=== PATIENT | male | born 1950 | race Two or more races ===

== ENCOUNTER 2017-06-19 12:17 | Inpatient (IN) | payer OTHER, MEDICAID ==
[~2017-06-19] VITALS: Ht 177.8 cm; Wt 82.0 kg
[2017-06-19] MEDS ORDERED: SODIUM CHLORIDE 0.9% 1,000 ML IV ONE (13:09)
[2017-06-19] MEDS ORDERED: ASPirin 81 mg TAB PO ONE ×2 (13:15→18:00)
[2017-06-19 13:34] LABS: Basophils # (auto) 0 uL; Basophils % (auto) 0.4 % (0.0-2.0); Eosinophils # (auto) 0.1 uL; Eosinophils % (auto) 1.4 % (0.0-7.0); Hematocrit 37.6 % (41.0-53.0); Hemoglobin 12.6 g/dL (13.5-17.5); Lymphocytes % (auto) 14.7 % (10.0-50.0); Mean Corpuscular Hemoglobin 29.7 pg (28.0-32.0); Mean Corpuscular Hgb Conc. 33.6 g/dL (32.0-36.0); Mean Corpuscular Volume 88.5 fL (80.0-100.0); Monocytes # (auto) 0.4 uL; Monocytes % (auto) 6.3 % (0.0-12.0); Neutrophils # (auto) 5.1 uL; Neutrophils % (auto) 77.2 % (37.0-80.0); Platelet Count (auto) 238 10^3/uL (140-450); Red Blood Cells 4.25 10^6/uL (4.5-5.90); Red Cell Distribution Width 13.8 % (11.8-14.3); White Blood Cell 6.6 10^3/uL (4.4-10.8)
[2017-06-19 14:15] LABS: BUN/Creatinine Ratio 22.9; Bilirubin, Total 0.3 mg/dL (0.2-1.0); Calcium 8.5 mg/dL (8.5-10.1); Magnesium 2.7 mg/dL (1.6-2.6); Potassium 4.6 mmol/L (3.5-5.1); Total Protein 6.4 g/dL (6.4-8.2)
[2017-06-19] MEDS ORDERED: DEXTROSE (50%) 50ML SYRG IV PRN (17:45)
[2017-06-19] MEDS: SODIUM CHLORIDE 0.9% 1,000 ML IV SCH (17:56)
[2017-06-19] MEDS: ACCU-CHEK COMFORT CURVE STRIP VI SCH (17:57)
[2017-06-19 18:11] LABS: Cholesterol 135 mg/dL (< 200); HDL Cholesterol 43 mg/dL (40-59); LDL Cholesterol 82 mg/dL (< 100); Triglycerides 124 mg/dL (< 150)
[2017-06-19] MEDS: InsuLIN REG 1unit/0.01ml Soln (100units/ml) SC SCH (18:42)
[2017-06-19] MEDS: ENOXAPARIN SOD 80 MG/0.8ML SYRINGE SC SCH ×2 (18:42→22:00)
[2017-06-19 19:59] LABS: Folate (Folic Acid) 16.85 ng/mL (5.38-24)
[2017-06-19 20:40] VITALS: BP 157/78
[2017-06-19 22:00] VITALS: BP 157/79
[2017-06-19] MEDS: METOPROLOL TARTRATE 25 MG TAB PO SCH (22:23)
[2017-06-19] MEDS: ATORVASTATIN 20 MG TAB PO SCH (22:24)
[2017-06-20] MEDS: ACCU-CHEK COMFORT CURVE STRIP VI SCH ×4 (00:05→17:47)
[2017-06-20] MEDS: InsuLIN REG 1unit/0.01ml Soln (100units/ml) SC SCH ×4 (00:06→17:48)
[2017-06-20 05:31] VITALS: BP 142/70
[2017-06-20 05:38] LABS: Basophils # (auto) 0 uL; Basophils % (auto) 0.3 % (0.0-2.0); Eosinophils # (auto) 0.2 uL; Eosinophils % (auto) 3.2 % (0.0-7.0); Hematocrit 36.4 % (41.0-53.0); Hemoglobin 12.7 g/dL (13.5-17.5); Lymphocytes # (auto) 1.3 uL; Lymphocytes % (auto) 25.7 % (10.0-50.0); Mean Corpuscular Hemoglobin 30.4 pg (28.0-32.0); Mean Corpuscular Hgb Conc. 34.9 g/dL (32.0-36.0); Mean Corpuscular Volume 87.3 fL (80.0-100.0); Monocytes # (auto) 0.4 uL; Monocytes % (auto) 8.4 % (0.0-12.0); Neutrophils # (auto) 3.2 uL; Neutrophils % (auto) 62.4 % (37.0-80.0); Platelet Count (auto) 234 10^3/uL (140-450); Red Blood Cells 4.17 10^6/uL (4.5-5.90); Red Cell Distribution Width 13.8 % (11.8-14.3); White Blood Cell 5.1 10^3/uL (4.4-10.8)
[2017-06-20 06:06] LABS: Albumin 2.8 g/dL (3.4-5.0); BUN/Creatinine Ratio 24.4; Bilirubin, Total 0.3 mg/dL (0.2-1.0); Calcium 8.5 mg/dL (8.5-10.1); Total Protein 5.9 g/dL (6.4-8.2)
[2017-06-20] MEDS: SODIUM CHLORIDE 0.9% 1,000 ML IV SCH ×2 (06:11→20:44)
[2017-06-20 08:00] VITALS: BP 145/69
[2017-06-20 09:00] VITALS: BP 145/69
[2017-06-20] MEDS: ENOXAPARIN SOD 80 MG/0.8ML SYRINGE SC SCH (10:00)
[2017-06-20] MEDS: METOPROLOL TARTRATE 25 MG TAB PO SCH ×2 (10:27→21:50)
[2017-06-20] MEDS: ASPirin 81 mg TAB PO SCH (10:28)
[2017-06-20] MEDS ORDERED: METO-158 PO (12:40)
[2017-06-20] MEDS ORDERED: ASPI325T4 PO (12:43)
[2017-06-20] MEDS ORDERED: PITA1TAB PO (12:43)
[2017-06-20] MEDS ORDERED: BACL10TA PO (12:43)
[2017-06-20 13:00] VITALS: BP 116/58
[2017-06-20 17:00] VITALS: BP 143/78
[2017-06-20] MEDS: ATORVASTATIN 20 MG TAB PO SCH (21:49)
[2017-06-20 22:00] VITALS: BP 143/64
[2017-06-21] MEDS: InsuLIN REG 1unit/0.01ml Soln (100units/ml) SC SCH ×5 (00:01→23:48)
[2017-06-21] MEDS ORDERED: hydrALAZINE HCL 20 MG/ML VL IV PRN (02:30)
[2017-06-21] MEDS: HYDROcodone-ACET 10/325MG TAB PO PRN (02:30)
[2017-06-21 05:00] VITALS: BP 129/57
[2017-06-21] MEDS: ACCU-CHEK COMFORT CURVE STRIP VI SCH ×5 (05:53→23:47)
[2017-06-21 08:23] VITALS: BP 145/61
[2017-06-21] MEDS: SODIUM CHLORIDE 0.9% 1,000 ML IV SCH ×2 (08:45→19:38)
[2017-06-21] MEDS: ASPirin 81 mg TAB PO SCH (10:07)
[2017-06-21] MEDS: INSULIN DETEMIR(LEVEMIR) 1unit/0.01ml Soln (100units/ml) SC SCH ×2 (10:22→22:12)
[2017-06-21] MEDS: METOPROLOL TARTRATE 25 MG TAB PO SCH ×2 (10:22→22:12)
[2017-06-21 12:17] VITALS: BP 112/54
[2017-06-21 16:58] VITALS: BP 151/67
[2017-06-21 22:00] VITALS: BP 136/59
[2017-06-21] MEDS: ATORVASTATIN 20 MG TAB PO SCH (22:11)
[2017-06-22 05:00] VITALS: BP 154/70
[2017-06-22] MEDS: ACCU-CHEK COMFORT CURVE STRIP VI SCH ×4 (05:40→23:42)
[2017-06-22] MEDS: InsuLIN REG 1unit/0.01ml Soln (100units/ml) SC SCH ×4 (05:52→23:42)
[2017-06-22 08:00] VITALS: BP 116/55
[2017-06-22] MEDS: SODIUM CHLORIDE 0.9% 1,000 ML IV SCH ×2 (08:08→20:41)
[2017-06-22 08:31] VITALS: BP 116/55
[2017-06-22] MEDS: ASPirin 325 MG TAB PO SCH (09:44)
[2017-06-22] MEDS: METOPROLOL TARTRATE 25 MG TAB PO SCH ×2 (09:56→21:48)
[2017-06-22] MEDS: INSULIN DETEMIR(LEVEMIR) 1unit/0.01ml Soln (100units/ml) SC SCH ×2 (10:02→21:49)
[2017-06-22 12:32] VITALS: BP_SYST 127; BP_SYST 145; BP_DIAS 54; BP_DIAS 66
[2017-06-22 17:02] VITALS: BP 143/92
[2017-06-22] MEDS: ATORVASTATIN 20 MG TAB PO SCH (21:48)
[2017-06-22 22:00] VITALS: BP 158/71
[2017-06-23] MEDS: HYDROcodone-ACET 10/325MG TAB PO PRN (03:01)
[2017-06-23 05:00] VITALS: BP 150/61
[2017-06-23] MEDS: InsuLIN REG 1unit/0.01ml Soln (100units/ml) SC SCH ×3 (06:00→17:45)
[2017-06-23] MEDS: ACCU-CHEK COMFORT CURVE STRIP VI SCH ×3 (06:22→17:44)
[2017-06-23 08:00] VITALS: BP 152/77
[2017-06-23] MEDS: SODIUM CHLORIDE 0.9% 1,000 ML IV SCH ×2 (09:08→21:38)
[2017-06-23] MEDS: ASPirin 325 MG TAB PO SCH (09:43)
[2017-06-23] MEDS: METOPROLOL TARTRATE 25 MG TAB PO SCH ×2 (09:44→22:21)
[2017-06-23] MEDS: INSULIN DETEMIR(LEVEMIR) 1unit/0.01ml Soln (100units/ml) SC SCH (09:49)
[2017-06-23] MEDS: MECLIZINE HCL 25 MG TAB PO PRN (09:55)
[2017-06-23 12:00] VITALS: BP 165/85
[2017-06-23 17:00] VITALS: BP 135/55
[2017-06-23] MEDS: ATORVASTATIN 20 MG TAB PO SCH (22:20)
[2017-06-23 22:54] VITALS: BP 135/67
[2017-06-24] MEDS: INSULIN DETEMIR(LEVEMIR) 1unit/0.01ml Soln (100units/ml) SC SCH ×2 (00:41→10:11)
[2017-06-24] MEDS: ACCU-CHEK COMFORT CURVE STRIP VI SCH ×3 (00:41→11:40)
[2017-06-24 05:23] VITALS: BP 136/71
[2017-06-24] MEDS: InsuLIN REG 1unit/0.01ml Soln (100units/ml) SC SCH ×3 (06:00→11:40)
[2017-06-24 08:00] VITALS: BP 159/73
[2017-06-24] MEDS: ASPirin 325 MG TAB PO SCH (10:03)
[2017-06-24] MEDS: METOPROLOL TARTRATE 25 MG TAB PO SCH (10:04)
[2017-06-24] MEDS: SODIUM CHLORIDE 0.9% 1,000 ML IV SCH (10:08)
[2017-06-24] MEDS: MECLIZINE HCL 25 MG TAB PO PRN (10:10)
[2017-06-24 13:01] VITALS: BP 150/78
== END 2017-06-24 15:15 | disposition home or self-care (01) | DRG 683 ==
LOC: EDBD 12:17 → ER 12:17 → OVERFLOW 12:18 → CENTRAL 20:40
PROVIDERS: ADMIT Family Medicine; ATTEND Internal Medicine
DX: I12.9 Hypertensive chronic kidney disease with stage 1 through stage 4 chronic kidney disease, or unspecified chronic kidney disease (principal); N17.9 Acute kidney failure, unspecified; I65.22 Occlusion and stenosis of left carotid artery; E11.22 Type 2 diabetes mellitus with diabetic chronic kidney disease; H81.10 Benign paroxysmal vertigo, unspecified ear; E11.9 Type 2 diabetes mellitus without complications; E78.5 Hyperlipidemia, unspecified; I25.10 Atherosclerotic heart disease of native coronary artery without angina pectoris; I25.5 Ischemic cardiomyopathy; Z79.4 Long term (current) use of insulin; Z79.82 Long term (current) use of aspirin; Z79.899 Other long term (current) drug therapy; Z86.73 Personal history of transient ischemic attack (TIA), and cerebral infarction without residual deficits; Z95.0 Presence of cardiac pacemaker; Z95.1 Presence of aortocoronary bypass graft; N18.3 Chronic kidney disease, stage 3 (moderate)
CPT/HCPCS: 36415; 70450; 71010; 78582; 80053; 80061; 82607; 82746; 82962; 83036; 83735; 84443; 84484; 85025; 85379; 85652; 87081; 93005; 93306; 93886; 93970; 94761; 96360; 96361; 97163; J1815